=== PATIENT | female | born 1980 | race Two or more races ===

== ENCOUNTER 2018-10-25 16:55 | Emergency (ER) | payer MEDICAID, BC ==
[~2018-10-25] VITALS: Ht 165.1 cm; Wt 49.9 kg
[2018-10-25] MEDS ORDERED: ESTROGEN (17:06)
[2018-10-25] MEDS ORDERED: PROGESTERONE (17:06)
[2018-10-25] MEDS ORDERED: LIDOCAINE VISCUS 2% 15 ML UDC MM ONE (17:15)
[2018-10-25] MEDS ORDERED: MAG HYDROX/AL HYDROX/SIMETH 30 ML LIQUID UDC PO ONE (17:15)
[2018-10-25] MEDS ORDERED: MAG HYDROX/AL HYDROX/SIMETH 30 ML LIQUID UDC ONE (17:22)
[2018-10-25] MEDS ORDERED: LIDOCAINE VISCUS 2% 15 ML UDC ONE (17:23)
[2018-10-25 17:26] LABS: *BILIRUBIN,URIN NEGATIVE (NEGATIVE); *BLOOD, URINE NEGATIVE (NEGATIVE); *CLARITY,URINE CLEAR (CLEAR); *COLOR,URINE LIGHT YELLOW (YELLOW); *KETONES,URINE NEGATIVE (NEGATIVE); *UROBILINOGEN,URINE 0.2 E.U./dl (NORMAL); LEUKOCYTE ESTERASE ,URINE NEGATIVE (NEGATIVE); NITRITE, URINE NEGATIVE (NEGATIVE); PH,URINE 7.5 (5.0-8.0); UGLUCOSE NEGATIVE (NEGATIVE)
[2018-10-25 17:27] LABS: *URINE HCG, QUAL NEGATIVE (NEGATIVE)
--- NOTE | 2018-10-25 17:27 | NUR ---
pt is in room #2b. dr John evaluated the pt.
[2018-10-25 17:29] LABS: BASOPHILS % (AUTO) 0.7 % (0.0-2.0); EOSINOPHILS % (AUTO) 0.9 % (0.0-7.0); HEMATOCRIT 42.4 % (31.2-41.9); HEMOGLOBIN 14.5 g/dL (10.9-14.3); LYMPHOCYTES # (AUTO) 2.3 K/uL (20.0-40.0); MEAN CORPUSCULAR HEMOGLOBIN 29.9 uug (24.7-32.8); MEAN CORPUSCULAR HGB CONC 34 g/dL (32.3-35.6); MEAN CORPUSCULAR VOLUME 87.7 fL (75.5-95.3); MONOCYTES # (AUTO) 0.5 K/uL (2.0-10.0); MONOCYTES % (AUTO) 9.4 % (0.0-11.0); NEUTROPHILS # (AUTO) 2.1 K/uL (1.8-8.9); PLATELET COUNT (AUTO) 145 K/uL (179-408); RED BLOOD CELL COUNT(AUTO) 4.84 MIL/uL (3.63-4.92)
[2018-10-25 17:44] LABS: CREATININE 0.8 mg/dL (0.6-1.3); POTASSIUM 4.4 mmol/L (3.5-5.1)
[2018-10-25 17:48] LABS: BILIRUBIN,DIRECT 0.1 mg/dL (0.0-0.2); BILIRUBIN,TOTAL 0.5 mg/dL (0.2-1.0); TOTAL PROTEIN, SERUM 7.6 g/dL (6.4-8.2)
[2018-10-25] MEDS ORDERED: ACETAMINOPHEN ES 500 MG TABLET ONE (17:49)
[2018-10-25] MEDS ORDERED: ACETAMINOPHEN 325 MG TABLET PO ONE (18:00)
--- NOTE | 2018-10-25 18:11 | NUR ---
pt was d/c'D to home. d/c instructions given to the pt.
[2018-10-25 18:12] VITALS: BP 125/68
== END 2018-10-25 18:13 | disposition home or self-care (01) ==
LOC: ER 16:58
DX: R10.12 Left upper quadrant pain (principal); Z79.899 Other long term (current) drug therapy
CPT/HCPCS: 36415; 71045; 76700; 83690; 84703; 85025; A4663; A9150

== ENCOUNTER 2019-01-27 13:18 | Emergency (ER) | payer BC, MEDICAID ==
[~2019-01-27] VITALS: Ht 165.1 cm; Wt 50.3 kg
[~2019-01-27 13:18] MED LIST: ESTROGEN; PROGESTERONE
--- NOTE | 2019-01-27 13:36 | NUR ---
Dr Linares into eval patient
[2019-01-27] MEDS ORDERED: KETOROLAC TROMETHAMINE 30 MG INJ IM ONE (13:45)
[2019-01-27] MEDS ORDERED: KETOROLAC TROMETHAMINE 30 MG INJ ONE (13:48)
--- NOTE | 2019-01-27 14:52 | NUR ---
Patient discharged to home in stable conditon with family taking patient . Written and verbal after care instructions given. Patient verbalizes understanding of instructions. Walked out of ER with no distress noted
[2019-01-27 14:53] VITALS: BP 128/77
== END 2019-01-27 14:54 | disposition home or self-care (01) ==
LOC: ER 13:18
DX: M94.0 Chondrocostal junction syndrome [Tietze] (principal); Z79.899 Other long term (current) drug therapy
CPT/HCPCS: 36415; 71045; 84702; 85379; 93005; 96372; 99284; J1885; A4663